=== PATIENT | female | born 1985 | race Two or more races ===

== ENCOUNTER 2020-02-29 01:17 | Emergency (ER) | payer SELFPAY ==
[~2020-02-29] VITALS: Ht 157.5 cm; Wt 52.8 kg
[2020-02-29 01:21] VITALS: BP 116/64
[2020-02-29] MEDS ORDERED: MAALOX/HYOSCYAMINE/LIDOCAINE 45 ML BTL PO ONE (02:00)
[2020-02-29] MEDS ORDERED: MAALOX/HYOSCYAMINE/LIDOCAINE 45 ML BTL ONE (02:25)
== END 2020-02-29 02:35 | disposition home or self-care (01) ==
LOC: ED 01:47
DX: J39.2 Other diseases of pharynx (principal)
CPT/HCPCS: 99283